=== PATIENT | female | born 1935 | race Caucasian/White ===

== ENCOUNTER 2019-01-23 14:17 | Emergency (ER) | payer OTHER ==
--- NOTE | 2019-01-23 14:31 | PDOC ---
History of Present Illness - General Stated Complaint: Laceration Time Seen by Provider: 01/23/19 14:30 - History of Present Illness Initial Comments: 01/23/19 15:54 84yo F hx HTN, HLD, Afib/flutter on Coumadin, COPD, and osteoporosis BIBA from home c/o skin tear to L morales. Pt is nonambulatory at baseline, uses wheelchair. Pt has 12/12 health aide. Aide was transferring pt to wheelchair today approximately 1hr ago and wheelchair nicked her skin, tearing it. Blood oozed out slowly, not a significant amount, and it almost completely stopped with gauze and pressure. Aide brought pt in because she's on coumadin so wanted to make sure the bleeding stopped. Per aide and pt, pt was in [facility] prior to injury. States the wheelchair only nicked her skin and did not hit the leg. Denies falls, head injury, or other injuries. Denies redness, warmth, swelling, or pus drainage. Pt endorses chronic tenderness to touch of all extremities and back, but denies any new pain or tenderness. Aide states this is a chronic condition that her PCP thought may be fibromyalgia or something similar. Denies fever, chills, fatigue, headache, dizziness, numbness/tingling, weakness, vision changes, shortness of breath, cough, chest pain, palpitations, leg swelling, abdominal pain, blood in stool, diarrhea, constipation, nausea, vomiting, dysuria, hematuria, confusion. Per chart, last tetanus given here on 08/2014. Past History - Past Medical History Allergies/Adverse Reactions: Allergies Allergy/AdvReac Type Severity Reaction Status Date / Time No Known Drug Allergies Allergy Verified 11/21/15 08:17 shrimp Allergy Uncoded 11/21/15 08:17 Home Medications: Ambulatory Orders Topiramate [Topamax] 100 mg PO HS 07/03/13 Carvedilol [Coreg -] 6.25 mg PO BID #14 tablet 07/16/13 Furosemide [Lasix -] 40 mg PO DAILY #0 07/16/13 Ranolazine [Ranexa -] 500 mg PO BID #0 tab 07/16/13 Albuterol Sulfate [Proair Respiclick] 90 mcg IH QID PRN 09/25/15 Amitriptyline HCl [Elavil -] 25 mg PO HS 09/25/15 Famotidine [Pepcid -] 40 mg PO DAILY 09/25/15 Fluticasone Prop 0.05% Nasal [Flonase -] 1 sprays NS DAILY 09/25/15 Montelukast Na [Singulair -] 10 mg PO HS 09/25/15 Oxybutynin Chloride [Oxybutynin Chloride ER] 5 mg PO DAILY 09/25/15 Rosuvastatin Calcium [Crestor] 10 mg PO DAILY 09/25/15 Sennosides [Senna -] 2 tab PO HS 09/25/15 Clotrimazole [Lotrimin -] 1 applic TP BID 11/21/15 Pantoprazole Sodium [Protonix -] 40 mg PO DAILY tablet.ec 11/25/15 Warfarin Na [Coumadin -] 2 mg PO DAILY@1800 tablet 11/25/15 Polyethylene Glycol 3350 [Miralax 119 gm Btl -] 17 gm PO DAILY bottle 11/26/15 Anemia: No Asthma: No Cancer: No Cardiac Disorders: Yes (a-fib) CVA: No COPD: Yes CHF: Yes Dementia: No Diabetes: No GI Disorders: No Disorders: Yes HTN: Yes Hypercholesterolemia: Yes Liver Disease: No Seizures: No Thyroid Disease: No - Surgical History Abdominal Surgery: Yes Appendectomy: Yes Cardiac Surgery: No Cholecystectomy: No Lung Surgery: No Neurologic Surgery: Yes (Cervical/lumbar laminectomies) Orthopedic Surgery: Yes (MULT (L)HIP/KNEES) - Suicide/Smoking/Psychosocial Hx Smoking Status: Yes Smoking History: Never smoked Have you smoked in the past 12 months: No Number of Cigarettes Smoked Daily: 0 If you are a former smoker, when did you quit?: "MANY MANY YEARS AGO" Cigars Per Day: 0 Hx Alcohol Use: No Drug/Substance Use Hx: No Substance Use Type: None Hx Substance Use Treatment: No Review of Systems - Review of Systems Comments:: 01/23/19 16:04 Constitutional: Negative for chills, fever, fatigue. HENT: Negative for sore throat, rhinorrhea, congestion. Eyes: Negative for visual disturbance. Respiratory: Negative for shortness of breath, cough, and wheezing. Cardiovascular: Negative for chest pain, palpitations, and leg swelling. Gastrointestinal: Negative for abdominal pain, blood in stool, constipation, diarrhea, nausea, and vomiting. Genitourinary: Negative for dysuria, flank pain, and hematuria. Musculoskeletal: Negative for myalgias, back pain, and neck pain. Skin: Positive for skin tear to LLE. Negative for rash. Neurological: Negative for light-headedness, dizziness, syncope, weakness, numbness and headaches. Psychiatric/Behavioral: Negative for behavioral problems and confusion. *Physical Exam - Physical Exam Comments: 01/23/19 16:06 Gen: Alert, NAD, comfortable-appearing. HEENT: PERRL, EOMI, MMM, NCAT. No conjunctival pallor. Sclera are non-icteric. CV: Regular rate and rhythm. No murmurs, rubs, or gallops. PULM: No resp distress. CTAB, no wheezes, rales, or rhonchi. ABD: soft, NT/ND, no rebound tenderness or guarding, no CVA tenderness. BACK: No TTP of c/t/l-spine. No step-offs or deformities. MSK: No bony deformities. 2+ pulses in all extremities. NEURO: AAOx3. PERRL. No gross CN deficits. Strength and sensation grossly intact throughout. EXTREMITIES: No cyanosis. No clubbing. No edema. No calf tenderness. LLE: 2+ pulses, sensation to light touch intact, full ROM of ankle and knee and toes, 5/5 strength. +anterior L morales superficial skin tear/flap 7cm long with 2cm gaping of skin at center, camarillo-shaped, white base with minimal bleeding at center, no purulence, no erythema, no warmth, no ecchymoses, no bony deformity, no edema, mild TTP. Able to bring edges of skin together manually with 2mm gap at center. PSYCH: Normal mood and thought pattern. SKIN: Warm and dry. Normal capillary refill. No rashes. No jaundice. Medical Decision Making - Medical Decision Making 01/23/19 15:19 84yo F hx HTN, HLD, Afib/flutter on Coumadin, COPD, and osteoporosis BIBA from home with superficial skin tear to L morales 2/2 mechanical tear, no significant trauma, no other injuries. Hemodynamically stable, afebrile, less than a few tablespoons of blood loss per aide and no s/s concerning for anemia, no s/s concerning for infection, LLE neurovascularly intact. Per chart, last tetanus given here on 08/2014. +anterior L morales superficial skin tear/flap 7cm long with 2cm gaping of skin at center, camarillo-shaped, white base with minimal bleeding at center, no purulence, no erythema, no warmth, no ecchymoses, no bony deformity, no edema, mild TTP. Able to bring edges of skin together manually with 2mm gap at center. Skin tear very superficial, no indication for sutures or asad. Will repair with dermabond and steri-strips. Wound clean. Edges brought together manually with maximum 2mm gap at center. Dermabond and steri-strips applied. Bleeding stopped. Gauze and cling wrap applied. Will dc home with PCP or ED wound check in 2 days. Return precautions given. Pt understands all dc instructions and all questions were answered. *DC/Admit/Observation/Transfer Diagnosis at time of Disposition: Skin tear of left lower leg without complication - Discharge Dispostion Disposition: HOME Condition at time of disposition: Improved Decision to Admit order: No - Referrals Referrals: Miguel Pierre MD [Primary Care Provider] - - Patient Instructions Printed Discharge Instructions: DI for Laceration Repair Steri-Strips, DI for Laceration Repair With Dermabond Additional Instructions: You have been seen in the Emergency Department for a skin tear on your left leg. Your tetanus is up to date (last in August 2014). We stopped the bleeding and repaired the tear with Dermabond (skin glue) and Steri-Strips (skin tape). Keep the wound clean and dry and do NOT apply ointment. Keep it covered with a gauze wrap and change this daily or if it becomes dirty. The tape will loosen on its own. Cut the edges of the tape that begin to peel off. Tape usually stays on for about 7 days. Return to the Emergency Department or follow-up with your primary care doctor in 2 days so we can check the wound. Return to the ED immediately if you experience chest pain, difficulty breathing , dizziness, fainting, vomiting, fever, or any other new or worsening symptom. Return to the ED immediately if the wound opens, starts bleeding again, drains pus, becomes red or warm, develops red streaks, or swells. - Post Discharge Activity
[2019-01-23 14:49] VITALS: BP 113/60; PULSE 88; TEMP 97.1; BMI 31.8
--- NOTE | 2019-01-23 15:29 | PDOC ---
Documentation entered by Verito Martino SCRIBE, acting as scribe for Checo Brooks MD. Checo Brooks MD: This documentation has been prepared by the Salena nguyen Sammi, SCRIBE, under my direction and personally reviewed by me in its entirety. I confirm that the documentation accurately reflects all work, treatment, procedures, and medical decision making performed by me. Attending Attestation - Resident Resident Name: Anali Mcclellan - ED Attending Attestation I have performed the following: I have examined & evaluated the patient, The case was reviewed & discussed with the resident, I agree w/resident's findings & plan, Exceptions are as noted - HPI HPI: 01/23/19 14:53 The patient is an 84 year old female who presents to the emergency department for evaluation of a skin tear to the left leg after trying to get out of her wheelchair. Pt is on anticoagulation. Denies any other injury. No fall/ headstrike/LOC. - Physicial Exam PE: 01/23/19 15:31 "GENERAL: Awake, alert, and fully oriented, in no acute distress. HEAD: No signs of trauma EYES: PERRLA, EOMI, sclera anicteric, conjunctiva clear ENT: Auricles normal inspection, hearing grossly normal, nares patent, oropharynx clear without exudates. Moist mucosa NECK: Nontender, no stepoffs, Normal ROM, supple, no lymphadenopathy, JVD, or masses LUNGS: Breath sounds equal, clear to auscultation bilaterally. No wheezes, and no crackles HEART: Regular rate and rhythm, normal S1 and S2, no murmurs, rubs or gallops ABDOMEN: Soft, nontender, normoactive bowel sounds. No guarding, no rebound. No masses EXTREMITIES: Normal range of motion, no edema. No clubbing or cyanosis. No cords, erythema, or tenderness NEUROLOGICAL: Cranial nerves II through XII intact. 5/5 strength and sensation in all extremities, Normal speech, normal gait, normal cerebellar function SKIN: + L morales with skin tear - Medical Decision Making 01/23/19 15:31 84 F with skin tear to L morales. - Repaired with steri-strips and dermabond - Tetanus up to date Pt is well appearing, with normal vitals. Clinically stable for DC at this time. I discussed the physical exam findings, ancillary test results and final diagnoses with the patient. I answered all of the patient's questions. The patient was satisfied with the care received and felt comfortable with the discharge plan and treatment plan. The patient agrees to follow up with the primary care physician within 24-72 hours.
== END 2019-01-23 22:16 | disposition home or self-care (01) ==
LOC: JER 14:17
PROC: 0HQLXZZ Repair Left Lower Leg Skin, External Approach (ICD-10-PCS; principal; 2019-01-23)
DX: S81.812A Laceration without foreign body, left lower leg, initial encounter (principal); W22.8XXA Striking against or struck by other objects, initial encounter; Y93.89 Activity, other specified; Y92.032 Bedroom in apartment as the place of occurrence of the external cause; Y99.8 Other external cause status; Z99.3 Dependence on wheelchair; I48.91 Unspecified atrial fibrillation; Z79.01 Long term (current) use of anticoagulants; I11.0 Hypertensive heart disease with heart failure; I50.9 Heart failure, unspecified; J44.9 Chronic obstructive pulmonary disease, unspecified; M19.90 Unspecified osteoarthritis, unspecified site
CPT/HCPCS: 99281-25

== ENCOUNTER 2020-08-23 22:55 | Emergency (ER) | payer OTHER ==
[2020-08-23 23:11] VITALS: TEMP 98.1; BMI 31.8
[2020-08-23] MEDS ORDERED: IBUPROFEN 400 MG TABLET (FP) PO ONE (23:49)
[2020-08-24] MEDS ORDERED: IBUPROFEN 400 MG TABLET (FP) PO ONE (00:12)
[2020-08-24 00:35] LABS: HEMATOCRIT 35.5 % (32.4-45.2); HEMOGLOBIN 11.5 GM/dL (10.7-15.3); MCHC 32.3 g/dl (32.0-36.0); MEAN PLT VOLUME 8.5 fl (7.5-11.1); PLATELET COUNT 184 K/MM3 (134-434); RDW 16.1 % (11.6-15.6); WHITE BLOOD COUNT 4.7 K/mm3 (4.0-10.0)
[2020-08-24 00:48] LABS: PROTHROMBIN TIME (PATIENT) 49.4 SEC (9.7-13.0)
[2020-08-24 00:55] LABS: POTASSIUM 3.4 mmol/L (3.5-5.1)
[2020-08-24 00:56] LABS: INR 4.19 (0.83-1.09)
[2020-08-24 00:57] LABS: CALCIUM 8.9 mg/dL (8.5-10.1)
[2020-08-24 00:58] LABS: ALBUMIN 2.9 g/dl (3.4-5.0); BLOOD UREA NITROGEN 14.2 mg/dL (7-18)
[2020-08-24 01:01] LABS: CREATININE 0.6 mg/dL (0.55-1.3)
[2020-08-24 01:03] LABS: BILIRUBIN,TOTAL 0.4 mg/dL (0.2-1); TOT PROT 6.6 g/dl (6.4-8.2)
[2020-08-24 05:23] VITALS: BP 120/76; PULSE 78
== END 2020-08-24 05:46 | disposition home or self-care (01) ==
LOC: SUPCPDRO 22:55 → JER 22:55
DX: M25.561 Pain in right knee (principal)
CPT/HCPCS: 36415; 73562-TC-LT-FY; 73562-TC-RT-FY; 80053; 85027; 85610; 93970-TC; 99285-25

== ENCOUNTER 2022-03-08 13:05 | Emergency (ER) | payer OTHER ==
[2022-03-08] MEDS ORDERED: MIDAZOLAM IN 0.9 % SOD.CHLORID 1 MG/1 ML PLAST..BAG ONE (13:12)
[2022-03-08] MEDS ORDERED: fentaNYL CITRATE 250 MCG/5 ML VIAL ONE (13:20)
[2022-03-08] MEDS ORDERED: PHYTONADIONE 10 MG/1 ML AMP ONE (13:36)
[2022-03-08 13:54] LABS: ARTERIAL BLD GAS O2 SATURATION 98.9 % (95-98); ARTERIAL BLOOD GAS BASE EXCESS -20.3 mmol/L (-2-2); ARTERIAL BLOOD GAS PO2 190.4 mmHg (80-100)
[2022-03-08 14:10] LABS: ARTERIAL BLOOD GAS pH 7.101 (7.350-7.450)
[2022-03-08 14:17] VITALS: BP 160/94; PULSE 127; BMI 32.0
[2022-03-08 14:36] VITALS: RESP 19
== END 2022-03-08 13:45 | disposition expired ==
LOC: JER 13:05
DX: I46.9 Cardiac arrest, cause unspecified (principal)
CPT/HCPCS: 36600; 71045-TC-FY; 82803; 99285-25